=== PATIENT | female | born 1995 | race Caucasian/White ===

== ENCOUNTER 2020-11-22 14:58 | Emergency (ER) | payer BC ==
--- NOTE | 2020-11-22 15:14 | EDM.PDOC ---
ED HPI GENERAL MEDICAL PROBLEM - General Chief Complaint: General Stated Complaint: Upper respiratory concerns Time Seen by Provider: 11/22/20 15:00 Source of Information: Reports: Patient History Limitations: Reports: No Limitations - History of Present Illness INITIAL COMMENTS - FREE TEXT/NARRATIVE: Patient comes into the emergency department complaints of upper respiratory co ncerns. Patient was seen in the clinic approximately 4 days ago and was prescribed amoxicillin for a diagnosis of laryngitis. Patient states that she has been feeling fatigue, tired, body aches, intermittent fevers, sore throat, and progressive cough. Patient states that she has not been feeling better since being prescribed antibiotics on Wednesday. Patient states that she did email her primary care provider who stated to continue with the medication regiment and allow more time. Patient comes into the emergency department looking for a second opinion regarding treatment modalities. 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 Onset: Gradual Duration: Constant Location: Reports: Head, Chest Quality: Reports: Ache Severity: Mild Improves with: Reports: Rest Worsens with: Reports: Movement Context: Reports: Activity Associated Symptoms: Reports: No Other Symptoms ED ROS GENERAL - Review of Systems Review Of Systems: Comprehensive ROS is negative, except as noted in HPI. Constitutional: Reports: Fever, Chills, Fatigue, Decreased Appetite HEENT: Reports: No Symptoms, Rhinitis, Throat Pain Respiratory: Reports: No Symptoms Cardiovascular: Reports: No Symptoms Endocrine: Reports: Fatigue GI/Abdominal: Reports: No Symptoms : Reports: No Symptoms Musculoskeletal: Reports: No Symptoms Skin: Reports: No Symptoms Neurological: Reports: No Symptoms Psychiatric: Reports: No Symptoms Hematologic/Lymphatic: Reports: No Symptoms Immunologic: Reports: No Symptoms ED EXAM, GENERAL - Physical Exam Exam: See Below Exam Limited By: No Limitations General Appearance: Alert, WD/WN, No Apparent Distress Ear Exam: Left Ear: Auricle Normal, Canal Normal, TM normal Nose: Normal Inspection, Normal Mucosa Throat/Mouth: Normal Inspection, Normal Lips, Normal Teeth, No Airway Compromise, Other (hoarse voice ) Head: Atraumatic, Normocephalic Neck: Normal Inspection, Supple, Non-Tender, Full Range of Motion Respiratory/Chest: No Respiratory Distress, Lungs Clear, Normal Breath Sounds, No Accessory Muscle Use, Chest Non-Tender Cardiovascular: Normal Peripheral Pulses, Regular Rate, Rhythm, No Edema Back Exam: Normal Inspection, Full Range of Motion Extremities: Normal Inspection, Normal Range of Motion, Non-Tender, Normal Capillary Refill Neurological: Alert, Oriented, CN II-XII Intact, Normal Gait Departure - Departure Time of Disposition: 15:30 Disposition: Home, Self-Care 01 Condition: Good Clinical Impression: URI (upper respiratory infection) Qualifiers: URI type: unspecified URI Qualified Code(s): J06.9 - Acute upper respiratory infection, unspecified - Discharge Information *PRESCRIPTION DRUG MONITORING PROGRAM REVIEWED*: Not Applicable *COPY OF PRESCRIPTION DRUG MONITORING REPORT IN PATIENT DELMIS: Not Applicable Instructions: COVID-19 Frequently Asked Questions, 3 Aburto Steps to Take While Waiting for Your COVID-19 Test Result - [facility] (08/23/2020), Viral Respiratory Infection, [id number] Forms: ED Department Discharge Additional Instructions: 1. rest 2. increase your water intake 3. Continue all at home medications 4. Activity and diet as tolerated 5. Can take over the counter Tylenol for any pain or discomfort 6. Follow up with PCP if symptoms continue, return, or progress 7. Call with any questions or concerns - Assessment/Plan Assessment:: 1. URI 2. Suspected Covid19 Plan: 1. No acute findings with assessment 2. Patient is encouraged to go to psychiatric hospital and have testing completed for covid-19 or follow [facility] quarantine guidelines regarding symptoms 3. Patient and nursing staff was updated regarding the plan of care 4. Education provided the patient regarding activity, diet, rest, [id number] medication modalities, and follow-up care was provided 5. Patient and family are agreeable to the above plan of care 6. All questions and concerns were addressed with the patient and family prior to discharge
== END 2020-11-22 16:21 | disposition home or self-care (01) ==
LOC: VM.ED 14:58
DX: J06.9 Acute upper respiratory infection, unspecified (principal)
CPT/HCPCS: 99283